=== PATIENT | male | born 1980 | race Two or more races ===

== ENCOUNTER 2020-02-21 12:04 | Emergency (ER) | payer SELFPAY ==
[~2020-02-21] VITALS: Ht 167.6 cm; Wt 72.6 kg
[2020-02-21 12:26] VITALS: BP 132/92
[2020-02-21] MEDS ORDERED: HYDROcodone-ACET 10/325MG TAB PO ONE (13:00)
== END 2020-02-21 13:28 | disposition home or self-care (01) ==
LOC: ER 12:04
DX: S62.101A Fracture of unspecified carpal bone, right wrist, initial encounter for closed fracture (principal); W19.XXXA Unspecified fall, initial encounter; Y93.89 Activity, other specified; Y92.89 Other specified places as the place of occurrence of the external cause; Y99.8 Other external cause status
CPT/HCPCS: 29125; 73100